=== PATIENT | female | born 1990 | race Caucasian/White ===

== ENCOUNTER 2018-07-26 16:05 | Emergency (ER) | payer OTHER ==
[2018-07-26 16:45] VITALS: BP 113/72; PULSE 87; RESP 18; TEMP 98.5
[2018-07-26] MEDS ORDERED: HYDROcodone/APAP 5-325MG 1 EACH TAB PO STA (17:24)
--- NOTE | 2018-07-26 18:35 | XR ---
Thoracic spine 3 views. History pain. Comparison none. FINDINGS: Thoracic vertebra have normal alignment. There is no paraspinal mass. There is no compression fractur e. Posterior elements are intact. There is slight anterior wedging of 2 mid thoracic vertebra that co uld be developmental. IMPRESSION: No acute abnormality of the thoracic spine. No definite fracture seen.
--- NOTE | 2018-07-26 18:36 | XR ---
Lumbar spine 3 views. History pain. Comparison none. FINDINGS: The vertebra have normal spacing and alignment. Posterior elements are intact. There is no compressio n fracture. Sacroiliac joints appear normal. IMPRESSION: Negative lumbar spine exam.
--- NOTE | 2018-07-26 18:37 | XR ---
Cervical spine 5 views. History pain. Comparison none. FINDINGS: The cervical vertebra have normal spacing and alignment. Posterior elements are intact. Neural forami na are widely patent. Atlantoaxial facet joint is normal. There are no cervical ribs. IMPRESSION: Normal cervical spine.
--- NOTE | 2018-07-26 18:44 | ED ---
Back Pain HPI - General Chief Complaint: Back Pain/Injury Stated Complaint: fall/back pain Source: patient Limitations: no limitations - History of Present Illness Initial Comments: 27 or female who denies past medical history presenting today for chief complaint of back pain. Patient states that yesterday she fell while care child on ice. She states she fell onto her bottom and her low back. Patient denies hitting her head, loss of consciousness. Patient admits to low back pain that radiates up towards her neck. She states pain is worse with range of motion at the lumbar spine including bending over and picking up her daughter. Patient states at times the pain causes nausea. Patient denies any dysuria, urgency, frequency, loss of bowel bladder control, numbness tingling or loss sensation of the lower extremities. Remaining review of systems negative, patient denies any recent fever, chills, shortness of breath, chest pain, abdominal pain, vomiting, dysuria or hematuria, constipation or diarrhea, headaches or visual changes, or any other complaints. - Related Data Previous Rx's Medication Instructions Recorded Cyclobenzaprine [Flexeril] 10 mg PO TID PRN 5 Days #15 tab 07/26/18 Allergies Allergy/AdvReac Type Severity Reaction Status Date / Time No Known Allergies Allergy Verified 07/26/18 16:42 Review of Systems ROS Statement: Those systems with pertinent positive or pertinent negative responses have been documented in the HPI. ROS Other: All systems not noted in ROS Statement are negative. Past Medical History Past Medical History: No Reported History History of Any Multi-Drug Resistant Organisms: None Reported Additional Past Surgical History / Comment(s): LEEP procedure Past Psychological History: No Psychological Hx Reported Smoking Status: Current every day smoker Past Alcohol Use History: None Reported Past Drug Use History: None Reported General Exam - General Exam Comments Initial Comments: General: The patient is awake and alert, in no distress, and does not appear acutely ill. Eye: Pupils are equal, round and reactive to light, extra-ocular movements are intact. No nystagmus. There is normal conjunctiva bilaterally. No signs of icterus. Cardiovascular: There is a regular rate and rhythm. No murmur, rub or gallop is appreciated. Respiratory: Lungs are clear to auscultation, respirations are non-labored, breath sounds are equal. No wheezes, stridor, rales, or rhonchi. Musculoskeletal: Normal inspection of the entire back, no ecchymosis. Patient has both midline tenderness to palpation of the lower thoracic and lumbar spine. Muscle tension palpable. Normal ROM, no tenderness of the lower extremities equal bilaterally. Negative straight leg raise bilaterally. Strength 5/5 of the lower extremities equal bilaterally. Sensation intact of the lower extremities equal bilaterally including the saddle region. DP pulses equal bilaterally 2+. Normal ambulation. No myoclonus or fasciculations. Neurological: A&O x 3. CN II-XII intact, There are no obvious motor or sensory deficits. Coordination appears grossly intact. Speech is normal. Skin: Skin is warm and dry and no rashes or lesions are noted. Psychiatric: Cooperative, appropriate mood & affect, normal judgment. Limitations: no limitations Course Vital Signs 07/26/18 16:42 Temperature 98.5 F Pulse Rate 87 Respiratory 18 Rate Blood Pressure 113/72 O2 Sat by Pulse 97 Oximetry Medical Decision Making - Medical Decision Making Well-appearing 27-year-old female, no signs of acute distress. Patient appears uncomfortable certain positions. Patient given [place] for pain management. Patient states this helped alleviate symptoms. Patient has no signs or symptoms concerning for cauda equina. Patient neurovascularly intact. Negative straight leg raise, no radicular symptoms. Patient did have midline tenderness to palpation, x-ray negative for acute osseous process. At this time I do feel patient is stable for discharge with treatment for muscle strain as there was possible muscle tension. Patient is agreeable plan discharge, she was instructed to continue to use ibuprofen and Tylenol outpatient. Patient was told to follow-up with primary care provider and return for worsening symptoms as discussed. Patient discharged appearing well. I did discuss the case with attending provider Dr. Yuen. Disposition Clinical Impression: Lumbar back pain, Fall, Muscle strain Disposition: HOME SELF-CARE Condition: Good Instructions (If sedation given, give patient instructions): Acute Low Back Pain (ED) Additional Instructions: Please use medication as discussed. Please follow-up with family doctor in the next 2 days of symptoms have not improved. Please return to emergency room if the symptoms increase or worsen or for any other concerns. Prescriptions: Cyclobenzaprine [Flexeril] 10 mg PO TID PRN 5 Days #15 tab PRN Reason: Muscle Spasm Is patient prescribed a controlled substance at d/c from ED?: No Referrals: None,Stated [Primary Care Provider] - 1-[address] [facility] [NON[facility]] - 1-2 days Time of Disposition: 18:44
== END 2018-07-26 18:55 | disposition home or self-care (01) ==
LOC: EC 16:05
DX: S39.012A Strain of muscle, fascia and tendon of lower back, initial encounter (principal); M54.2 Cervicalgia; F17.200 Nicotine dependence, unspecified, uncomplicated; W00.0XXA Fall on same level due to ice and snow, initial encounter; Y93.89 Activity, other specified
CPT/HCPCS: 72050; 72072; 72100; 99283